=== PATIENT | female | born 1995 | race African-American/Black ===

== ENCOUNTER 2016-12-12 20:38 | Emergency (ER) | payer OTHER ==
[~2016-12-12] VITALS: Ht 154.9 cm; Wt 65.9 kg
[2016-12-12 20:42] VITALS: BP 120/81; TEMP 98.4
[2016-12-12] MEDS ORDERED: allergy med (20:44)
[2016-12-12 22:02] LABS: PH 7 (5-8); SQUAMOUS EPITHELIAL 0-2 /hpf; URINE APPEARANCE Cloudy; URINE BACTERIA None Seen /hpf; URINE BILIRUBIN Negative (NEGATIVE); URINE BLOOD 3+ (NEGATIVE); URINE COLOR Yellow; URINE GLUCOSE Negative (NEGATIVE); URINE KETONE Trace (NEGATIVE); URINE RBC >50 /hpf; URINE UROBILINOGEN Negative (NEGATIVE)
[2016-12-12 22:25] LABS: URINE WBC >50 /hpf
[2016-12-12] MEDS ORDERED: MACROBID 1100 MG/CAP PO (22:31)
[2016-12-12] MEDS ORDERED: PYRIDIUM200 M1 PO (22:31)
[2016-12-12 22:47] VITALS: PULSE 76
== END 2016-12-12 22:47 | disposition home or self-care (01) ==
LOC: COL.ER 20:38
PROVIDERS: Nurse Practitioner
DX: N39.0 Urinary tract infection, site not specified (principal); K64.4 Residual hemorrhoidal skin tags; B96.89 Other specified bacterial agents as the cause of diseases classified elsewhere